=== PATIENT | male | born 1985 | race Caucasian/White ===

== ENCOUNTER 2016-08-29 18:33 | Emergency (ER) | payer SELFPAY ==
--- NOTE | 2016-08-30 13:17 | ER ---
ADMIT: 08/29/2016 RM/LOC: ER [facility] MR#: [id number] [address] [id number] FERNANDO LOPEZ [address] [place] [address] KUSH FOSS [id number] Emergency Room Report SEX: M AGE: 30 : 1985 DATE: 08/29/2016 A 30-year-old with several days' worth of toothache. No trauma. It has been bothering him for the past several days. That is the reason he comes in today. 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 This is somewhat interesting as we have had several patients in the emergency department recently from [place] with the same complaints. He appears somewhat agitated, quickly stating he is allergic to Toradol and Ultram. He is given clindamycin in the emergency department, Gordo PEARSON. Instructed to follow up with a dentist this week. DIAGNOSIS: Dental pain and caries. Davon Collier MD/ landry JOB #: [id number] CC: Davon Collier MD, Attending Physician Soy Ibarra MD, Family Physician
== END 2016-08-29 19:10 | disposition home or self-care (01) ==
LOC: ER 18:33
DX: K02.9 Dental caries, unspecified (principal); F17.210 Nicotine dependence, cigarettes, uncomplicated; Z88.0 Allergy status to penicillin; Z88.6 Allergy status to analgesic agent; Z88.8 Allergy status to other drugs, medicaments and biological substances